=== PATIENT | male | born 1960 | race Two or more races ===

== ENCOUNTER 2018-12-21 09:31 | Emergency (ER) | payer OTHER ==
[~2018-12-21] VITALS: Ht 185.4 cm; Wt 72.6 kg
[2018-12-21] MEDS ORDERED: LOTREL 5-20 MG1 CAP PO (09:42)
== END 2018-12-21 15:52 | disposition home or self-care (01) ==
LOC: ER 09:31
DX: R42 Dizziness and giddiness (principal)

== ENCOUNTER 2023-07-31 12:49 | Emergency (ER) | payer OTHER ==
[~2023-07-31] VITALS: Ht 185.4 cm; Wt 83.5 kg
[~2023-07-31 12:49] MED LIST: LOTREL 5-20 MG1 CAP PO
[2023-07-31] MEDS ORDERED: VALSARTAN4 MG/1 ML PO (13:04)
[2023-07-31 14:20] LABS: HEMOGLOBIN 13.3 g/dL (13-16.00); MEAN CORPUSCULAR HEMOGLOBIN 34.6 pg (27.00-32.0); MEAN CORPUSCULAR HGB CONC 34.9 g/dl (32.0-36.0); PLATELET COUNT 340 K/uL (150-450); RED BLOOD COUNT 3.83 M/uL (4.00-6.00); RED CELL DISTRIBUTION WIDTH 13.6 % (11.5-14.5)
[2023-07-31 14:39] LABS: URINE APPEARANCE Clear; URINE BILIRRUBIN Negative (NEGATIVE); URINE BLOOD Negative; URINE COLOR Yellow; URINE GLUCOSE Negative (NEGATIVE); URINE LEUKOCYTE Small; URINE NITRATE Negative; URINE PROTEIN Negative (NEGATIVE)
[2023-07-31 14:40] LABS: URINE BACTERIA 8.8 uL (0.0-1933); URINE RBC 14.5 uL (0.0-20.8); URINE WBC 8.9 uL (0.0-23.2)
[2023-07-31 14:41] LABS: INR 1.04; PARTIAL THROMBOPLASTIN TIME 27.1 SECONDS (22.0-34.0); PROTHROMBIN TIME 10.9 SECONDS (9.0-11.5)
[2023-07-31 14:47] LABS: URINE EPITHELIAL CELLS 0.4 uL (0.0-38.8)
[2023-07-31 14:53] LABS: ALBUMIN 3.5 gm/dL (3.4-5.0); BILIRUBIN TOTAL 0.39 mg/dL (0.3-1.2); CALCIUM 9.5 mg/dL (8.5-10.1); CREATININE SERUM 1.06 mg/dL (0.70-1.30); GFR 71.26; GLOBULINA 4.3 G/DL (2.4-3.5); POTASSIUM 3.78 mEq/L (3.5-5.1); TOTAL PROTEIN 7.8 gm/dL (6.4-8.2)
[2023-07-31] MEDS ORDERED: LevETIRAcetam 500 MG TAB. PO SCH (17:46)
[2023-07-31] MEDS ORDERED: 0.9 % SODIUM CHLORIDE 1,000 ML IV STA (23:48)
[2023-07-31] MEDS ORDERED: DEXAMETHASONE SODIUM PHOSPHATE 4 MG/ML VIAL IV STA (23:50)
[2023-07-31] MEDS ORDERED: KETOROLAC TROMETHAMINE 30 MG VIAL IV STA (23:52)
== END 2023-08-01 08:15 | disposition home or self-care (01) ==
LOC: ER 12:49
PROVIDERS: Emergency Medicine
DX: R42 Dizziness and giddiness (principal); I10 Essential (primary) hypertension
CPT/HCPCS: 36415; 70450; 70553; 71260; Q9965; 70552